=== PATIENT | female | born 1965 | race Caucasian/White ===

== ENCOUNTER 2023-02-10 11:33 | Day surgery (SDC) | payer OTHER ==
[~2023-02-10] VITALS: Ht 162.6 cm; Wt 115.0 kg
[~2023-02-10 11:33] MED LIST: ABILIFY5 MG PO; ADULT LOW DOSE81 MG PO; ALBUTEROL2.5 MG/0.5 INH; BRINTELLIX5 MG PO; DICLOFENAC POTA50 MG PO; DILAUDID4 MG PO; FLECAINIDE ACE100 MG PO; IBUPROFEN600 MG PO; IRON18 MG PO; LIPITOR40 MG PO; MAG DELAY64 M1 PO; NEURONTIN300 MG PO; PINDOLOL5 MG PO; PROAIR HFA8.5 GM INH; TIKOSYN500 MCG PO
--- NOTE | 2023-02-10 14:25 | NUR ---
02/10/23 1425 Izzy Samuel PT TO PACU AWAKE AND TALKING DENIES PAIN OR NAUSEA. PT PASSING PRISCILLA.
--- NOTE | 2023-02-12 13:17 | OR ---
[facility] [address], [place] [address] Signed DATE OF OPERATION: 02/10/2023 SURGEON: Ronald Vargas MD PREOPERATIVE DIAGNOSIS: Family history of colon cancer (mother and two uncles). POSTOPERATIVE DIAGNOSIS: Essentially normal colon and ileum; deep sulci diverticula of sigmoid. PROCEDURE: Total colonoscopy to cecum with intubation of ileum. ANESTHESIA: Intravenous sedation fentanyl 150 mcg and Versed 5 mg. INDICATIONS: This 57-year-old white woman is a patient of VIANNEY Ren. She has family history of colon cancer in a mother and two uncles. She currently is asymptomatic. She also has history of gastric sleeve resection for bariatric purposes. She is admitted at this time to undergo screening colonoscopy. Understands the risks of bleeding, infection, perforation. FINDINGS: The prep was excellent. Complete colonoscopy was undertaken of the cecum with intubation of the ileum as well. There was no evidence of polyps or colitis. She had deep sulci folds of the sigmoid colon consistent with low-grade diverticulosis. There were no other findings of note. PROCEDURE IN DETAIL: The patient was brought to the endoscopy suite and placed in lateral decubitus position, given intravenous sedation to the point of slurred speech and nystagmus. Digital rectal examination was normal. An Olympus video colonoscope was passed in the rectum and manipulated into the sigmoid and beyond ultimately intubating the cecum itself. The ileocecal valve and appendiceal orifice were well visualized and normal. The scope was passed into the ilium without problem and was normal also. The scope was then withdrawn and examination throughout showed no evidence of polyps or colitis but deep sulci of the sigmoid consistent with diverticular disease. Retroflexed view of the rectum was normal. Scope was removed. Electronically Signed By: RONALD VARGAS MD 02/12/23 1317 PATIENT NAME: SHILPI HEREDIA OPERATIVE REPORT DATE OF : 61 REPORT #: [id number] PHYSICIAN: RONALD VARGAS MD PCP: OTHER PCP REPORT IS CONFIDENTIAL AND NOT TO BE RELEASED WITHOUT AUTHORIZATION [facility] [address], [place] [address] Signed The patient was taken to the recovery room in good condition. CONCLUDING DIAGNOSIS: Essentially normal colon with mild sigmoid diverticulosis. PLAN: Recommend repeat colonoscopy in 5 years based on family history, sooner if clinically indicated. Would maintain high-fiber diet as well. She will return to the ongoing care of VIANNEY Ren. MD KWAN Ivory/YE /[id number] cc: AKBAR Garduno Copies: Selena Bocanegra ~ Electronically Signed By: RONALD VARGAS MD 02/12/23 1317 PATIENT NAME: SHILPI HEREDIA OPERATIVE REPORT DATE OF : 61 REPORT #: [id number] PHYSICIAN: RONALD VARGAS MD PCP: OTHER PCP REPORT IS CONFIDENTIAL AND NOT TO BE RELEASED WITHOUT AUTHORIZATION
== END 2023-02-10 14:40 | disposition home or self-care (01) ==
LOC: OPS 11:33 → DS 11:42 → OPS 12:00 → DS 13:00 → OPS 13:00
PROVIDERS: ATTEND Surgery
PROC: 0DJD8ZZ Inspection of Lower Intestinal Tract, Via Natural or Artificial Opening Endoscopic (ICD-10-PCS; principal; 2023-02-10 12:00)
DX: Z12.11 Encounter for screening for malignant neoplasm of colon (principal); Z80.0 Family history of malignant neoplasm of digestive organs; Z98.84 Bariatric surgery status; E66.01 Morbid (severe) obesity due to excess calories; Z68.41 Body mass index [BMI] 40.0-44.9, adult; Z86.59 Personal history of other mental and behavioral disorders; Z86.79 Personal history of other diseases of the circulatory system; Z90.711 Acquired absence of uterus with remaining cervical stump; K57.30 Diverticulosis of large intestine without perforation or abscess without bleeding
CPT/HCPCS: 99153; G0500; J0690; J2250; J3010